=== PATIENT | female | born 1955 | race Caucasian/White ===

== ENCOUNTER 2016-12-09 14:59 | Emergency (ER) | payer OTHER ==
[~2016-12-09] VITALS: Ht 172.7 cm; Wt 65.2 kg
[2016-12-09] MEDS ORDERED: GING500C3 PO (15:13)
[2016-12-09] MEDS ORDERED: VITATAB11 PO (15:13)
[2016-12-09] MEDS ORDERED: ASCO25TA PO (15:13)
[2016-12-09] MEDS ORDERED: VITA100T2 PO (15:13)
--- NOTE | 2016-12-09 17:20 | REPUSA ---
CT of the head Clinical history: facial numbness. Technique: Multiple axial CT images were obtained through the head without administration of contrast . Findings: The ventricles and sulci are symmetric bilaterally. There is no evidence of acute hemorrhag e or infarct. There is no midline shift, mass effect, or extra-axial fluid collection. The osseous st ructures are unremarkable. The visualized paranasal sinuses and mastoid air cells are clear. Impression: Negative study.
[2016-12-09 17:32] LABS: MEAN CORPUSCULAR HEMOGLOBIN 28.9 pg (27.0-33.0); MEAN CORPUSCULAR HGB CONC 32.9 g/dl (32.0-36.5); MEAN CORPUSCULAR VOLUME 87.8 fl (80.0-96.0); RED CELL DISTRIBUTION WIDTH 13.3 % (11.5-14.5)
[2016-12-09 17:39] LABS: INR 0.98
[2016-12-09 17:53] LABS: ANION GAP 6 MEQ/L (8-16); BLOOD UREA NITROGEN 9 MG/DL (7-18); CALCIUM LEVEL 9.3 MG/DL (8.8-10.2); CARBON DIOXIDE LEVEL 29 MEQ/L (21-32); CHLORIDE LEVEL 104 MEQ/L (98-107); CREATININE FOR GFR 0.86 MG/DL (0.55-1.02); GLOMERULAR FILTRATION RATE > 60.0 (>45); GLUCOSE, FASTING 96 MG/DL (80-110); POTASSIUM SERUM 3.7 MEQ/L (3.5-5.1); SODIUM LEVEL 139 MEQ/L (136-145)
[2016-12-09 18:12] VITALS: BP 123/64
--- NOTE | 2016-12-09 19:00 | ECGEPIP ---
Stationary ECG Study [facility] - ED Test Date: 2016-12-09 Pat Name: ANA MARIA BORDEN Department: Room: - Gender: [employer] Front [employer]k Attendant: julianna : 1955 Requested By: JOSÉ MIGUEL Alan Order Number: [id number] Reading MD: Jaiden Lau Measurements Intervals [place] Rate: 69 P: 54 NH: 175 QRS: 70 QRSD: 87 T: 47 QT: 359 QTc: 387 Interpretive Statements SINUS RHYTHM Electronically Signed On 12-09-2016 19:00:05 EDT by Jaiden Lau
--- NOTE | 2016-12-10 12:12 | REP ---
AP PORTABLE CHEST: 12/09/2016. Comparison: None. Clinical history: CVA. Findings: Lungs are hyperinflated without pleural effusion or acute infiltrate. Some underlying COPD is suggested with some interstitial fibrotic appearance although mild. There is a dextroconvex curve in the mid thoracic spine with levoconvex compensatory curve upper spine. Mildly tortuous aorta follows this curve, no aneurysm. No cardiomegaly, vascular redistribution or edema. Impression: 1. Hyperinflation and changes of COPD without cardiomegaly, edema, effusion or acute infiltrate. Signed by Odin Schmid MD 12/10/2016 09:35 A
== END 2016-12-09 18:22 | disposition home or self-care (01) ==
LOC: M ED 17:25
DX: R20.2 Paresthesia of skin (principal); R20.0 Anesthesia of skin; R42 Dizziness and giddiness; Z79.899 Other long term (current) drug therapy; Z88.8 Allergy status to other drugs, medicaments and biological substances; Z88.1 Allergy status to other antibiotic agents

== ENCOUNTER → 2017-03-17 | Outpatient (CLI) | payer OTHER ==
[~2017-03-17] MED LIST: ASCO25TA PO; GING500C3 PO; VITA100T2 PO; VITATAB11 PO
--- NOTE | 2017-03-17 10:26 | REP ---
RIGHT WRIST, FOUR VIEWS: HISTORY: Pain. There is a nondisplaced intra-articular fracture of the distal radius. There is no dislocation. There is narrowing of the radiocarpal, first carpometacarpal and navicular greater lesser multangular joint spaces. Chondrocalcinosis is present. IMPRESSION: Nondisplaced intra-articular fracture of the distal radius. Signed by Gerardo Barbour MD 03/17/2017 10:36 A
== END ==
LOC: M WUC 09:12
PROVIDERS: ATTEND Physician Assistant
DX: M25.531 Pain in right wrist (principal)

== ENCOUNTER → 2017-06-20 | Outpatient (CLI) | payer OTHER | LOC: M WHC 13:49 | DX: Z12.31 Encounter for screening mammogram for malignant neoplasm of breast (principal) | CPT/HCPCS: 77067 ==

== ENCOUNTER → 2017-08-20 | Outpatient (CLI) | payer OTHER ==
[2017-08-20 17:36] LABS: ALBUMIN/GLOBULIN RATIO 1.29 (1.00-1.93); ALKALINE PHOSPHATASE 133 U/L (45-117); ALT/SGPT 28 U/L (12-78); ANION GAP 3 MEQ/L (8-16); AST/SGOT 18 U/L (7-37); BILIRUBIN,DIRECT 0.2 MG/DL (0.0-0.2); BILIRUBIN,TOTAL 0.5 MG/DL (0.2-1.0); BLOOD UREA NITROGEN 17 MG/DL (7-18); CALCIUM LEVEL 9.5 MG/DL (8.8-10.2); CARBON DIOXIDE LEVEL 31 MEQ/L (21-32); CHLORIDE LEVEL 105 MEQ/L (98-107); CREATININE FOR GFR 0.89 MG/DL (0.55-1.30); GLOMERULAR FILTRATION RATE > 60.0 (>45); GLUCOSE, FASTING 96 MG/DL (70-100); PHOSPHORUS LEVEL 3.6 MG/DL (2.5-4.9); POTASSIUM SERUM 5.1 MEQ/L (3.5-5.1); SODIUM LEVEL 139 MEQ/L (136-145); TOTAL PROTEIN 7.1 GM/DL (6.4-8.2)
[2017-08-20 18:11] LABS: ERYTHROCYTE SEDIMENTATION RATE 3 mm/hr (0-30)
[2017-08-20 20:11] LABS: APPEARANCE, URINE CLEAR (CLEAR); BACTERIA, URINE AUTO NEGATIVE (NEGATIVE); BILIRUBIN, URINE AUTO NEGATIVE (NEGATIVE); BLOOD, URINE BLOOD NEGATIVE (NEGATIVE); COLOR, URINE COLORLESS (YELLOW); GLUCOSE, URINE (UA) AUTO NEGATIVE (NEGATIVE); KETONE, URINE AUTO NEGATIVE (NEGATIVE); LEUKOCYTE ESTERASE, URINE AUTO NEGATIVE (NEGATIVE); NITRITE, URINE AUTO NEGATIVE (NEGATIVE); PROTEIN, URINE AUTO NEGATIVE (NEGATIVE); RBC, URINE AUTO 1 /HPF (0-3); SPECIFIC GRAVITY URINE AUTO 1.002 (1.002-1.035); SQUAMOUS EPITHELIAL CELL UR AU 0 /HPF (0-6); UROBILINOGEN, URINE AUTO 0.2 mg/dL (0.0-2.0); WBC, URINE AUTO 0 /HPF (0-3)
[2017-08-20 20:59] LABS: FERRITIN 15 NG/ML (8-252); IRON (FE) 84 UG/DL (50-170); PERCENT SATURATION 22.8 % (13.2-45.0); TOTAL IRON BINDING CAPACITY 368 UG/DL (250-450)
[2017-08-20 22:22] LABS: BASO % 0.3 % (0.0-1.0); EOS % 0.6 % (0.0-3.0); HEMATOCRIT 45.7 % (36.0-47.0); HEMOGLOBIN 14.9 g/dl (12.0-16.0); IMMATURE GRANULOCYTE % 0.3 % (0-3.0); LYMPH # 2.7 10^3/uL (1.5-4.5); MEAN CORPUSCULAR HEMOGLOBIN 28.7 pg (27.0-33.0); MEAN CORPUSCULAR HGB CONC 32.6 g/dl (32.0-36.5); MEAN CORPUSCULAR VOLUME 88.1 fl (80.0-96.0); MONO # 0.6 10^3/uL (0.0-0.8); NEUTROPHILS # 3.3 10^3/uL (1.8-7.7); NEUTROPHILS % 49.8 % (36.0-66.0); PLATELET COUNT, AUTOMATED 310 10^3/uL (150-450); RED BLOOD COUNT 5.19 10^6/uL (4.00-5.40); RED CELL DISTRIBUTION WIDTH 14.2 % (11.5-14.5); WHITE BLOOD COUNT 6.7 10^3/uL (4.0-10.0)
[2017-08-22 14:14] LABS: ANTI DOUBLE STRAND-DNA AB 17 IU/mL (0-9); ANTINUCLEAR ANTIBODIES DIRECT Positive (Negative); RNP ANTIBODIES 0.2 AI (0.0-0.9); SJOGREN'S ANTI SS-A 1.1 AI (0.0-0.9); SJOGREN'S ANTI SS-B <0.2 AI (0.0-0.9); SMITH ANTIBODIES <0.2 AI (0.0-0.9)
== END ==
LOC: M WUC 12:29
DX: L56.8 Other specified acute skin changes due to ultraviolet radiation (principal)
CPT/HCPCS: 82040

== ENCOUNTER → 2018-02-13 | Outpatient (CLI) | payer OTHER | LOC: M WUC 09:58 | DX: M25.562 Pain in left knee (principal) ==

== ENCOUNTER → 2018-09-23 | Outpatient (REF) | payer OTHER ==
[~2018-09-23] MED LIST changes: -ASCO25TA PO; -VITA100T2 PO; +VITA100T8 PO; +VITA1TAB23 PO
[2018-09-25 14:36] LABS: HPV HYBRID CAPTURE II Negative (Negative)
== END ==
LOC: M SFHCWAGY 13:32
PROVIDERS: ATTEND Nurse Practitioner Family
DX: Z12.4 Encounter for screening for malignant neoplasm of cervix (principal)

== ENCOUNTER → 2018-09-23 | Outpatient (CLI) | payer OTHER ==
--- NOTE | 2018-09-23 16:19 | REPMRS ---
Patient History The patient states she had a clinical breast exam in 09/2018. Family history of colorectal cancer at age 50 or over in paternal grandfather, prostate cancer at age 50 or over in father. Digital Woman Screen Mammo: September 23, 2018 - Exam #: [id number] Bilateral CC and MLO view(s) were taken. Technologist: Lizet Olguin Technologist Prior study comparison: June 20, 2017, digital woman screen mammo performed at [facility]. November 08, 2015, digital woman screen mammo performed at [facility]. May 26, 2014, digital woman screen mammo performed at [facility]. FINDINGS: There are scattered fibroglandular densities. There has been no change in the appearance of the mammogram from the prior studies. There is a mild amount of scattered fibroglandular density which is fairly symmetric. There is no interval development of dominant mass, architectural distortion, or clustered microcalcification suggestive of malignancy. 3-D tomosynthesis shows no additional findings. Assessment: BI-RADS/ACR category 1 mammogram. Negative Mammogram. Recommendation Routine screening mammogram of both breasts in 1 year (for women over age 40). This patient's Lifetime Breast Cancer RIsk is estimated at 6.0 %. This mammogram was interpreted with the aid of an FDA-approved computer-aided dectection system. Electronically Signed By: Jhonatan Vazquez MD 09/23/18 1661
== END ==
LOC: M WHC 13:18
PROVIDERS: ATTEND Nurse Practitioner Family
DX: Z12.31 Encounter for screening mammogram for malignant neoplasm of breast (principal)

== ENCOUNTER 2018-10-16 12:02 | Day surgery (SDC) | payer OTHER ==
[~2018-10-16] VITALS: Ht 172.7 cm; Wt 65.3 kg
[~2018-10-16 12:02] MED LIST changes: +FISH1000 PO; +GLUC1CAP10 PO; +L-LY500T6 PO; +MULTCAP PO; +RA N1TAB PO; +THIA100TA PO; +VITA500T PO; +VITATAB73 PO; +calcium 600 PA
[2018-10-16] MEDS ORDERED: NS 1,000 ML IV SCH (12:45)
[2018-10-16] MEDS ORDERED: LIDOCAINE 2% INJ 100 MG/5 ML SDV (FOR ANES.) As Ordered ONE (13:04)
[2018-10-16] MEDS ORDERED: PROPOFOL 200 MG/20 ML VIAL As Ordered ONE (13:04)
[2018-10-16] MEDS ORDERED: GLYCOPYRROLATE INJ 0.2 MG/ML 2 ML VIAL As Ordered ONE (13:04)
--- NOTE | 2018-10-16 13:21 | ROOR ---
Patient Name: Sirisha Lainez Procedure Date: 10/16/2018 12:52 PM Date of : 1955 Age: 62 Room: [facility] Gender: Female Note Status: Finalized Procedure: Colonoscopy Indications: High risk colon cancer surveillance: Personal history of colonic polyps, Family history of colon cancer in a first-degree relative Providers: Jasvir DESAI MD Referring MD: Reji Kaminski MD Requesting Provider: Medicines: Monitored Anesthesia Care Complications: No immediate complications. Procedure: Pre-Anesthesia Assessment: - The heart rate, respiratory rate, oxygen saturations, blood pressure, adequacy of pulmonary ventilation, and response to care were monitored throughout the procedure. The Colonoscope was introduced through the anus and advanced to the terminal ileum, with identification of the appendiceal orifice and IC valve. The colonoscopy was performed without difficulty. The patient tolerated the procedure well. The quality of the bowel preparation was good. Findings: The perianal and digital rectal examinations were normal. The colon (entire examined portion) was moderately redundant. Advancing the scope required using manual pressure. Two sessile polyps were found in the proximal ascending colon. The polyps were 4 to 6 mm in size. These polyps were removed with a cold snare. Resection and retrieval were complete. A 3 mm polyp was found in the splenic flexure. The polyp was sessile. The polyp was removed with a cold snare. Resection and retrieval were complete. A 4 mm polyp was found in the sigmoid colon. The polyp was sessile. The polyp was removed with a cold snare. Resection and retrieval were complete. Multiple medium-mouthed diverticula were found in the sigmoid colon and descending colon. The exam was otherwise without abnormality. Impression: - Redundant colon. - Two 4 to 6 mm polyps in the proximal ascending colon, removed with a cold snare. Resected and retrieved. - One 3 mm polyp at the splenic flexure, removed with a cold snare. Resected and retrieved. - One 4 mm polyp in the sigmoid colon, removed with a cold snare. Resected and retrieved. - Diverticulosis in the sigmoid colon and in the descending colon. - The colon examination was otherwise normal. Recommendation: - Repeat colonoscopy in 3 years for surveillance. Jasvir Desai MD Jasvir DESAI MD 10/16/2018 1:21:09 PM Electronically signed by Jasvir DESAI MD Number of Addenda: 0 Note Initiated On: 10/16/2018 12:52 PM Estimated Blood Loss: Estimated blood loss: none.
[2018-10-16 13:45] VITALS: BP 120/75
== END 2018-10-16 13:52 | disposition home or self-care (01) ==
LOC: M OPP 12:02
PROVIDERS: ATTEND Internal Medicine Gastroenterology
DX: D12.2 Benign neoplasm of ascending colon (principal); D12.3 Benign neoplasm of transverse colon; D12.5 Benign neoplasm of sigmoid colon; K57.30 Diverticulosis of large intestine without perforation or abscess without bleeding; Q43.8 Other specified congenital malformations of intestine; Z86.010 Personal history of colon polyps; Z80.0 Family history of malignant neoplasm of digestive organs

== ENCOUNTER → 2018-11-28 | Outpatient (REF) | payer MEDICARE, OTHER | LOC: M LAB REF 11:36 | PROVIDERS: ATTEND Physician Assistant | DX: L02.212 Cutaneous abscess of back [any part, except buttock and flank] (principal) ==

== ENCOUNTER → 2020-04-13 | Outpatient (CLI) | payer MEDICARE, OTHER ==
[~2020-04-13] MED LIST changes: +VITA-243 PO; -VITA1TAB23 PO; +VITA250T20 PO; -VITA500T PO
--- NOTE | 2020-04-13 15:23 | REPMRS ---
Patient History The patient states she had a clinical breast exam in March 2020. Family history of colorectal cancer at age 50 or over in paternal grandfather, prostate cancer at age 50 or over in father. 3D TOMOSYNTHESIS WAS PERFORMED. [facility] for [facility]%. [place] breast density d. Digital Woman Screen Mammo: April 13, 2020 - Exam #: [id number] Bilateral CC and MLO view(s) were taken. Technologist: Karma Larsen, Technologist Prior study comparison: September 23, 2018, bilateral digital woman screen mammo performed at [facility]. June 20, 2017, digital woman screen mammo performed at [facility]. FINDINGS: The breast tissue is heterogeneously dense. This may lower the sensitivity of mammography. There has been no change in the appearance of the mammogram from the prior studies. There is a moderate amount of residual fibroglandular tissue which is fairly symmetric. There is no interval development of dominant mass, areas of architectural distortion, or clustered microcalcification typical of malignancy. Assessment: BI-RADS/ACR category 1 mammogram. Negative Mammogram. Recommendation Routine screening mammogram in 1 year (for women over age 40). This mammogram was interpreted with the aid of an FDA-approved computer-aided dectection system. Electronically Signed By: Marck Boyd MD 04/13/20 1463
== END ==
LOC: M WHC 13:43
PROVIDERS: ATTEND Nurse Practitioner Family
DX: Z01.419 Encounter for gynecological examination (general) (routine) without abnormal findings (principal); Z12.31 Encounter for screening mammogram for malignant neoplasm of breast; Z80.42 Family history of malignant neoplasm of prostate
CPT/HCPCS: 77063; 77067; G0101; G0463

== ENCOUNTER → 2021-01-10 | Outpatient (CLI) | payer MEDICARE, OTHER ==
[2021-01-10 16:24] LABS: HEMATOCRIT 42.4 % (36.0-47.0); MEAN CORPUSCULAR HEMOGLOBIN 28.8 pg (27.0-33.0); MEAN CORPUSCULAR VOLUME 87.2 fl (80.0-96.0); PLATELET COUNT, AUTOMATED 275 10^3/uL (150-450); RED BLOOD COUNT 4.86 10^6/uL (4.00-5.40); WHITE BLOOD COUNT 5.6 10^3/uL (4.0-10.0)
[2021-01-10 16:39] LABS: ALBUMIN 3.8 GM/DL (3.2-5.2); ALT/SGPT 39 U/L (12-78); BILIRUBIN,TOTAL 0.7 MG/DL (0.2-1.0); BLOOD UREA NITROGEN 11 MG/DL (7-18); CALCIUM LEVEL 9.9 MG/DL (8.8-10.2); CARBON DIOXIDE LEVEL 32 MEQ/L (21-32); CHLORIDE LEVEL 106 MEQ/L (98-107); CHOLESTEROL LEVEL 238 MG/DL (<200); CHOLESTEROL RISK RATIO 2.404 (<5); CREATININE FOR GFR 0.82 MG/DL (0.55-1.30); GLOMERULAR FILTRATION RATE > 60.0 (>45); GLUCOSE, FASTING 93 MG/DL (70-100); HDL CHOLESTEROL 99 MG/DL (>40); LDL CHOLESTEROL 127 MG/DL (<100); NON-HDL-C 139 MG/DL; POTASSIUM SERUM 4.7 MEQ/L (3.5-5.1); SODIUM LEVEL 141 MEQ/L (136-145); TRIGLYCERIDES LEVEL 61 MG/DL (<150)
== END ==
LOC: M WUC 13:34
PROVIDERS: ATTEND Family Medicine
DX: Z00.00 Encounter for general adult medical examination without abnormal findings (principal)

== ENCOUNTER → 2021-08-31 | Outpatient (CLI) | payer MEDICARE, OTHER | LOC: M WHC 13:44 | PROVIDERS: ATTEND Advanced Practice Midwife | DX: Z12.31 Encounter for screening mammogram for malignant neoplasm of breast (principal) ==

== ENCOUNTER → 2022-02-15 | Outpatient (REF) | payer MEDICARE, OTHER | LOC: M WUC 09:56 | PROVIDERS: ATTEND Physician Assistant | DX: N39.0 Urinary tract infection, site not specified (principal) ==

== ENCOUNTER → 2022-05-09 | Outpatient (CLI) | payer MEDICARE, OTHER ==
[~2022-05-09] MED LIST changes: +CIDA500T2 PO; +CRAN1260 PO; +CURC500C PO; +GING250C PO; +OMEG10002 PO; +VITMTA PO
== END ==
LOC: M LABSMTC 09:57
PROVIDERS: ATTEND Anesthesiology
DX: Z01.812 Encounter for preprocedural laboratory examination (principal); Z20.822 Contact with and (suspected) exposure to COVID-19

== ENCOUNTER 2022-05-14 13:15 | Day surgery (SDC) | payer MEDICARE, OTHER ==
[~2022-05-14] VITALS: Ht 172.7 cm; Wt 61.0 kg
[~2022-05-14 13:15] MED LIST changes: +NS 1,000 ML IV ONE
[2022-05-14] MEDS ORDERED: propofoL 200 MG/20 ML VIAL As Ordered ONE (13:42)
[2022-05-14 14:56] VITALS: BP 119/77
== END 2022-05-14 16:55 | disposition home or self-care (01) ==
LOC: M OPP 13:15
PROVIDERS: ATTEND Internal Medicine Gastroenterology
DX: Z86.010 Personal history of colon polyps (principal); K63.5 Polyp of colon; K57.30 Diverticulosis of large intestine without perforation or abscess without bleeding; K64.8 Other hemorrhoids; N30.10 Interstitial cystitis (chronic) without hematuria; Z88.1 Allergy status to other antibiotic agents; Z88.8 Allergy status to other drugs, medicaments and biological substances; Z91.040 Latex allergy status; Z79.899 Other long term (current) drug therapy; Z80.0 Family history of malignant neoplasm of digestive organs; Z80.42 Family history of malignant neoplasm of prostate; Z83.3 Family history of diabetes mellitus; Z86.19 Personal history of other infectious and parasitic diseases

== ENCOUNTER → 2023-02-04 | Outpatient (CLI) | payer MEDICARE, OTHER ==
[~2023-02-04] MED LIST changes: -NS 1,000 ML IV ONE
== END ==
LOC: M WHC 14:57
PROVIDERS: ATTEND Nurse Practitioner Family
DX: Z12.31 Encounter for screening mammogram for malignant neoplasm of breast (principal)

== ENCOUNTER → 2023-02-04 | Outpatient (REF) | payer MEDICARE, OTHER | LOC: M SFHCWAGY 17:13 | PROVIDERS: ATTEND Nurse Practitioner Family | DX: Z12.4 Encounter for screening for malignant neoplasm of cervix (principal); N95.2 Postmenopausal atrophic vaginitis | CPT/HCPCS: 87624; G0123 ==

== ENCOUNTER → 2024-02-10 | Outpatient (CLI) | payer MEDICARE, OTHER | LOC: M WHC 14:50 | PROVIDERS: ATTEND Nurse Practitioner Family | DX: Z12.31 Encounter for screening mammogram for malignant neoplasm of breast (principal) ==

== ENCOUNTER → 2025-02-23 | Outpatient (CLI) | payer MEDICARE, OTHER ==
[~2025-02-23] MED LIST changes: -L-LY500T6 PO; +RA L500T PO
== END ==
LOC: M WHC 13:28
PROVIDERS: ATTEND Nurse Practitioner Family
DX: Z12.31 Encounter for screening mammogram for malignant neoplasm of breast (principal); R92.323 Mammographic fibroglandular density, bilateral breasts; Z13.820 Encounter for screening for osteoporosis; M85.851 Other specified disorders of bone density and structure, right thigh; M85.852 Other specified disorders of bone density and structure, left thigh; M85.88 Other specified disorders of bone density and structure, other site; N95.1 Menopausal and female climacteric states

== ENCOUNTER → 2025-02-23 | Outpatient (REF) | payer MEDICARE, OTHER ==
[2025-02-25 13:47] LABS: HPV APTIMA Not Detected (Not Detected)
== END ==
LOC: M SFHCWAGY 15:59
PROVIDERS: ATTEND Nurse Practitioner Family
DX: Z12.4 Encounter for screening for malignant neoplasm of cervix (principal)
CPT/HCPCS: 87624; G0123